=== PATIENT | male | born 1965 | race Caucasian/White ===

== ENCOUNTER 2021-04-15 00:14 | Emergency (ER) | payer OTHER ==
[2021-04-15] MEDS ORDERED: Cephalexin 500 MG Cap PO STA (02:24)
== END 2021-04-15 02:43 | disposition home or self-care (01) ==
LOC: JD.ED 00:14
DX: L53.9 Erythematous condition, unspecified (principal); I10 Essential (primary) hypertension; E66.9 Obesity, unspecified; Z88.8 Allergy status to other drugs, medicaments and biological substances; Z87.891 Personal history of nicotine dependence; Z68.39 Body mass index [BMI] 39.0-39.9, adult
CPT/HCPCS: 99283; A9270